=== PATIENT | male | born 1995 | race Caucasian/White ===

== ENCOUNTER 2022-05-22 14:30 | Emergency (ER) | payer OTHER ==
[~2022-05-22] VITALS: Ht 193 cm; Wt 90.7 kg
== END 2022-05-22 17:30 | disposition home or self-care (01) ==
LOC: ED 14:30
DX: S61.211A Laceration without foreign body of left index finger without damage to nail, initial encounter (principal); Z23 Encounter for immunization; W31.2XXA Contact with powered woodworking and forming machines, initial encounter
CPT/HCPCS: 90471; 90715; 99282-25